=== PATIENT | male | born 2000 | race Two or more races ===

== ENCOUNTER 2022-09-20 16:03 | Emergency (ER) | payer MEDICAID, OTHER ==
[~2022-09-20] VITALS: Ht 175.3 cm; Wt 109.2 kg
[2022-09-20 16:23] VITALS: BP 148/86
[2022-09-20] MEDS ORDERED: cefTRIAXone SOD 1,000 MG VL IM ONE (16:30)
[2022-09-20] MEDS ORDERED: ACETAMINOPHEN 500 MG TAB PO ONE (16:30)
[2022-09-20] MEDS ORDERED: IBUP800T27 PO (17:26)
== END 2022-09-20 17:32 | disposition home or self-care (01) ==
LOC: ER 16:03
DX: G44.209 Tension-type headache, unspecified, not intractable (principal); J03.90 Acute tonsillitis, unspecified
CPT/HCPCS: 70450; 96372; 99285; J0696